=== PATIENT | female | born 1975 | race Caucasian/White ===

== ENCOUNTER 2019-06-11 08:14 | Outpatient (CLI) | payer BC, SELFPAY ==
--- NOTE | 2019-06-11 08:21 | CT_ITS ---
WS: [id number] CT ANGIOGRAM CEREBRAL ARTERIES HISTORY: ABNORMAL CT OF BRAIN TECHNIQUE: Pre and postcontrast imaging through the brain. CT angiogram is performed of the cerebral arteries. During arterial injection imaging is obtained from the skull vertex to the skull base in 1. 25 mm imaging. Coronal and sagittal reformats are submitted. Additional multi planar reformats of the cerebral arteries are submitted, MIP imaging also reviewed. All CT scans at [facility] use at least one of these dose optimization techniques: automated exposure control; mA and/or kV adju stment per patient size (includes targeted exams where dose is matched to clinical indication); or it erative reconstruction. CONTRAST: Omnipaque 350; 95 mL IV. DLP: 1152.04 mGy-cm. COMPARISON: Noncontrast CT head 05/15/[address] brain is first performed. There is no acute hemorrhage, edema or midline shift. No sig nificant atrophy or volume loss. Intracranial vertebral arteries: Normal with no significant atherosclerosis. Basilar artery: No significant stenosis or occlusion. No aneurysm. Intracranial Internal carotid arteries: Demonstrates no significant stenosis or plaque. No aneurysm. Middle cerebral arteries: Normal. Anterior cerebral arteries and ACOM: Normal. Posterior cerebral arteries and PCOM's: Normal. Dural venous sinuses are normally enhancing. Mastoid air cells: Normal. Small amount of cerumen in the LEFT external auditory canal. Paranasal sinuses: Normal. Calvarium: Normal. CT/CT angio head 88171 IMPRESSION: 1. Normal MR angiogram [place]. No aneurysm or occlusion. 2. No intracranial hemorrhage.
[2019-06-11] MEDS: iohexol 350 mg/mL 100 mL Btl IV (08:42)
--- NOTE | 2019-07-12 15:03 | DCPLANNER ---
Patient attended appointment scheduled for 07.10.[address] Strong.
== END 2019-06-11 08:15 | disposition home or self-care (01) ==
LOC: RADWPI 08:19
PROVIDERS: Family Provider Family Medicine; PCP Family Medicine; Visit Provider Family Medicine
DX: R90.89 Other abnormal findings on diagnostic imaging of central nervous system (principal)
CPT/HCPCS: 70496

== ENCOUNTER → 2019-07-10 11:11 | Outpatient (BNVA) | payer BC, SELFPAY | PROVIDERS: Family Provider Family Medicine; PCP Family Medicine; Referring Provider Family Medicine; Visit Provider Specialist | DX: I99.8 Other disorder of circulatory system (principal); Z86.73 Personal history of transient ischemic attack (TIA), and cerebral infarction without residual deficits | CPT/HCPCS: 99204; 99214 ==